=== PATIENT | male | born 1950 | race Caucasian/White ===

== ENCOUNTER 2017-04-20 01:32 | Inpatient (IN) | payer OTHER ==
[~2017-04-20] VITALS: Wt 117.0 kg
[~2017-04-20 01:32] MED LIST: AMOXICILLIN 8751 TAB PO; ANTIVERT 25MG25 MG PO; CALCIUM & MAGNE1 CAP PO; CALCIUM1 CAP PO; CARAFATE 1GM1 G PO; ELITE MAGNESIUM1 TAB PO; ETODOLAC500 MG PO; FLUOXETINE20 M1 PO; GABAPENTIN300 M1 PO; GLIPIZIDE XL5 MG PO; GLUCOTROL 5M5 MG/TAB PO; HCTZ 25MG TAB25 MG PO; HCTZ 25MG25 MG PO; METFORMIN1000 MG PO; OMEPRAZOLE20 M1 PO; PRAVACHOL 20MG20 MG PO; PRILOSEC 20MG20 MG PO; PRINIVIL40 MG PO; PROZAC 20MG20 MG PO; SLOW RELEASE IR50 MG PO; VISION FORMULA1 TAB PO; VITAMIN C500 MG PO; ZESTRIL40 MG PO; ZINC10 M1 PO; [UNRECOGNIZED DRUG - OTHER]
[2017-04-20] MEDS ORDERED: INSULIN (01:44)
[2017-04-20 02:11] LABS: BASO % 0.4 % (0.0-2.0); EOS % 0.5 % (0-4.0); GRAN % 74.2 % (42.2-75.2); HEMATOCRIT 38.1 % (42.0-52.0); HEMOGLOBIN 12.7 g/dl (13.5-18.0); LYMPH # 1.3 (1.2-3.4); LYMPH % 16.4 % (20.0-51.0); MEAN CELL VOLUME 86 fl (80.0-100.0); MEAN CORPUSCULAR HEMOGLOBIN 29 pg (27.0-31.0); MEAN CORPUSCULAR HGB CONC 33 g/dl (33.0-37.0); MONO # 0.7 (0.1-0.6); MONO % 8.3 % (1.7-9.3); PLATELET COUNT 217 K/mm3 (130-400); RED BLOOD COUNT 4.41 M/mm3 (4.20-5.60); REDCELL DISTRIBUTION WIDTH-CV 13.2 % (11.5-14.5)
[2017-04-20 02:20] LABS: ALBUMIN 4.3 gm/dL (3.5-5.0); BILIRUBIN,TOTAL 0.6 mg/dL (0.0-1.0); C-REACTIVE PROTEIN 0.8 mg/dL (0.0-0.9); CALCIUM 9.1 mg/dL (8.4-10.2); CREATININE, serum 0.82 mg/dL (0.66-1.25); POTASSIUM 4.7 mmol/L (3.4-5.0); TOTAL PROTEIN 7.6 gm/dL (6.4-8.2)
[2017-04-20 02:26] LABS: ERYTHROCYTE SEDIMENTATION RATE 13 mm/hr (0-30)
[2017-04-20 04:56] VITALS: BP 153/54; PULSE 80; TEMP 98.1
[2017-04-20] MEDS ORDERED: ASPIRIN 81M81 MG/TA2 PO ×2 (05:41→13:30)
[2017-04-20 10:16] VITALS: BP 149/72; PULSE 84; TEMP 98.5
[2017-04-20] MEDS ORDERED: ARICEPT10 MG PO (13:09)
[2017-04-20] MEDS ORDERED: PROZAC40 MG PO (13:10)
[2017-04-20] MEDS ORDERED: GLUCOTROL 5M5 MG/TAB PO ×2 (13:11→13:12)
[2017-04-20] MEDS ORDERED: GLUCOSE4 G1 PO (13:14)
[2017-04-20] MEDS ORDERED: PRINIVIL10 MG PO (13:16)
[2017-04-20] MEDS ORDERED: MOBIC15 MG PO (13:17)
[2017-04-20] MEDS ORDERED: GLUCOPHAGE1000 MG PO (13:19)
[2017-04-20] MEDS ORDERED: STRIVERDI2.5 MCG/Ac IH (13:20)
[2017-04-20] MEDS ORDERED: PRIL40 PO (13:21)
[2017-04-20] MEDS ORDERED: ONGLYZA5 MG PO (13:22)
[2017-04-20] MEDS ORDERED: TRIAMCINOLONE A15 G3 TP (13:24)
[2017-04-20] MEDS ORDERED: LIPITOR 10MG10 MG PO (13:26)
[2017-04-20] MEDS ORDERED: LANTUS100 U/ML SQ (13:29)
[2017-04-20] MEDS ORDERED: D-2000 90 MG-201 TAB PO (13:30)
[2017-04-20 14:02] VITALS: BP 167/74; PULSE 75; TEMP 98.8
[2017-04-20 16:21] LABS: INFLUENZA A NEGATIVE; INFLUENZA B NEGATIVE
[2017-04-20 18:16] VITALS: BP 142/68; PULSE 77; TEMP 98.6
[2017-04-20 22:25] VITALS: BP 150/58; PULSE 86; TEMP 97.6
[2017-04-21 05:40] VITALS: BP 158/68; PULSE 87; TEMP 98.4
[2017-04-21 07:00] LABS: BASO % 0.1 % (0.0-2.0); GRAN # 6.6 (1.4-6.5); GRAN % 86.2 % (42.2-75.2); LYMPH # 0.7 (1.2-3.4); LYMPH % 9.3 % (20.0-51.0); MEAN CELL VOLUME 87 fl (80.0-100.0); MEAN CORPUSCULAR HGB CONC 33 g/dl (33.0-37.0); MONO # 0.3 (0.1-0.6); MONO % 3.9 % (1.7-9.3); PLATELET COUNT 237 K/mm3 (130-400); REDCELL DISTRIBUTION WIDTH-CV 13.6 % (11.5-14.5)
[2017-04-21 07:06] LABS: HEMATOCRIT 35.8 % (42.0-52.0); HEMOGLOBIN 11.7 g/dl (13.5-18.0); MEAN CORPUSCULAR HEMOGLOBIN 29 pg (27.0-31.0)
[2017-04-21 07:38] LABS: CALCIUM 8.9 mg/dL (8.4-10.2); CREATININE, serum 0.73 mg/dL (0.66-1.25)
[2017-04-21 09:07] VITALS: BP 115/81; PULSE 88; TEMP 97.9
[2017-04-21] MEDS ORDERED: PREDNISONE20 MG PO (10:39)
[2017-04-21] MEDS ORDERED: PEPCID 20MG TAB20 MG PO (10:39)
[2017-04-21] MEDS ORDERED: ZYRTEC 10MG10 MG PO (10:40)
== END 2017-04-21 12:25 | disposition home or self-care (01) | DRG 916 ==
LOC: COL.ER 01:32 → SURG 04:12
PROVIDERS: Emergency Medicine; Physician Assistant
DX: T78.3XXA Angioneurotic edema, initial encounter (principal); T46.4X5A Adverse effect of angiotensin-converting-enzyme inhibitors, initial encounter; E11.9 Type 2 diabetes mellitus without complications; Z79.4 Long term (current) use of insulin; I10 Essential (primary) hypertension
CPT/HCPCS: 99223-AI; 99239; J0171; J1100; J1200; J1815; J2930; J7030; J7040

== ENCOUNTER 2017-05-01 12:17 | Emergency (ER) | payer MEDICARE ==
[~2017-05-01] VITALS: Ht 172.7 cm; Wt 118.2 kg
[~2017-05-01 12:17] MED LIST changes: +ARICEPT10 MG PO; +ASPIRIN 81M81 MG/TA2 PO; +D-2000 90 MG-201 TAB PO; +GLUCOPHAGE1000 MG PO; +GLUCOSE4 G1 PO; +INSULIN; +LANTUS100 U/ML SQ; +LIPITOR 10MG10 MG PO; +MOBIC15 MG PO; +ONGLYZA5 MG PO; +PEPCID 20MG TAB20 MG PO; +PREDNISONE20 MG PO; +PRIL40 PO; +PRINIVIL10 MG PO; +PROZAC40 MG PO; +STRIVERDI2.5 MCG/Ac IH; +TRIAMCINOLONE A15 G3 TP; +ZYRTEC 10MG10 MG PO
[2017-05-01 12:20] VITALS: TEMP 98.6
[2017-05-01] MEDS ORDERED: FLONASE NASAL S16 GM NS (12:39)
[2017-05-01] MEDS ORDERED: CEPHALEXIN500 M1 PO (12:52)
[2017-05-01 13:34] VITALS: BP 160/76; PULSE 74
== END 2017-05-01 13:31 | disposition home or self-care (01) ==
LOC: COL.ER 12:17
DX: S61.412A Laceration without foreign body of left hand, initial encounter (principal); E11.9 Type 2 diabetes mellitus without complications; Z79.4 Long term (current) use of insulin; W26.8XXA Contact with other sharp object(s), not elsewhere classified, initial encounter

== ENCOUNTER 2018-07-19 18:41 | Emergency (ER) | payer MEDICARE ==
[~2018-07-19] VITALS: Ht 172.7 cm; Wt 120.5 kg
[~2018-07-19 18:41] MED LIST changes: +CEPHALEXIN500 M1 PO; +FLONASE NASAL S16 GM NS
[2018-07-19 20:15] VITALS: BP 134/75; PULSE 111
== END 2018-07-19 20:15 | disposition home or self-care (01) ==
LOC: COL.ER 18:41
DX: K59.00 Constipation, unspecified (principal); E11.9 Type 2 diabetes mellitus without complications; I10 Essential (primary) hypertension; Z79.84 Long term (current) use of oral hypoglycemic drugs; Z79.82 Long term (current) use of aspirin; Z79.51 Long term (current) use of inhaled steroids

== ENCOUNTER 2018-08-27 19:38 | Emergency (ER) | payer MEDICARE ==
[~2018-08-27] VITALS: Ht 172.7 cm; Wt 121.4 kg
[~2018-08-27 19:38] MED LIST changes: +DRISDOL50000 IU PO; +NORVASC 10MG10 MG PO; +PRINCIPEN500 MG PO
[2018-08-27 19:43] VITALS: TEMP 97.3
[2018-08-27 21:00] VITALS: BP 133/68; PULSE 66
== END 2018-08-27 21:11 | disposition home or self-care (01) ==
LOC: COL.ER 19:38
DX: T18.128A Food in esophagus causing other injury, initial encounter (principal); E11.9 Type 2 diabetes mellitus without complications; I10 Essential (primary) hypertension; K21.9 Gastro-esophageal reflux disease without esophagitis; F41.9 Anxiety disorder, unspecified; E78.5 Hyperlipidemia, unspecified; F32.9 Major depressive disorder, single episode, unspecified; Z79.4 Long term (current) use of insulin

== ENCOUNTER 2018-12-03 10:00 | Outpatient (RCR) | payer MEDICARE | END 2019-01-03 13:15 | disposition home or self-care (01) | LOC: WSPT 10:00 | DX: M25.511 Pain in right shoulder (principal); G89.29 Other chronic pain ==